=== PATIENT | female | born 1995 | race Caucasian/White ===

== ENCOUNTER 2022-01-31 18:37 | Inpatient (IN) | payer OTHER ==
[~2022-01-31] VITALS: Ht 157.5 cm; Wt 66.8 kg
[2022-01-31] MEDS ORDERED: KETOROLAC 30MG/ML VIAL IV STA (20:29)
[2022-01-31] MEDS ORDERED: SODIUM CHLORIDE 0.9% 1,000 ML IV ONE (20:30)
[2022-01-31] MEDS ORDERED: LEVETIRACETAM 500MG PREMIX 100 ML IV ONE (20:30)
[2022-01-31 21:07] LABS: CHLORIDE 97 mEq/L (98-107)
[2022-01-31 21:13] LABS: HEMATOCRIT. 37.9 % (36.0-48.0); HEMOGLOBIN. 12.8 g/dL (12.0-16.0); MEAN CORPUSCULAR HEMOGLOBIN 28.8 pg (28.0-32.0); MEAN CORPUSCULAR VOLUME 85.2 fL (81.0-99.0); MEAN PLATELET VOLUME 7.9 fl (7.4-10.4); PLATELET 352 x1000/uL (130-400); RED BLOOD CELL COUNT 4.44 mill/uL (4.2-5.4); RED CELL DISTRIBUTION WIDTH 13.3 % (11.6-14.6)
[2022-01-31 21:18] LABS: HCG SCREEN NEGATIVE
[2022-01-31 21:48] LABS: PLATELET ESTIMATE NORMAL
[2022-01-31] MEDS ORDERED: DEXAMETHASONE 10 MG/ML VIAL IV ONE (22:15)
[2022-01-31] MEDS ORDERED: MANNITOL 12.5G (25%) VIAL 50ML IV ONE (22:15)
[2022-02-01] MEDS ORDERED: GADOTERATE MEGLUMINE 5 MMOL/10 ML VIAL IV ONE (01:41)
[2022-02-01] MEDS ORDERED: ONDANSETRON HCL 4MG/2ML INJ IV PRN (05:30)
[2022-02-01] MEDS ORDERED: GUAIFENESIN 200MG/10ML SUGAR FREE UDC PO PRN (05:30)
[2022-02-01] MEDS ORDERED: ACETAMINOPHEN 325MG TABLET PO PRN (05:30)
[2022-02-01] MEDS ORDERED: DOCUSATE SODIUM 100MG CAPSULE PO PRN (05:30)
[2022-02-01] MEDS ORDERED: TRAMADOL 50MG TABLET PO PRN (05:30)
[2022-02-01] MEDS ORDERED: MAGNESIUM/ALUMINUM HYDROXIDE/SIMETHICONE 30ML UDC PO PRN (05:30)
[2022-02-01] MEDS ORDERED: NALOXONE HCL 0.4MG/ML VIAL IV PRN (09:00)
[2022-02-01] MEDS ORDERED: KETOROLAC 15MG/ML VIAL IV PRN (11:45)
[2022-02-01 11:47] VITALS: BP 100/58
[2022-02-01] MEDS ORDERED: DEXAMETHASONE 4MG/ML 1ML VIAL IV SCH (12:00)
[2022-02-01 12:01] VITALS: BP 100/58
[2022-02-01 12:59] VITALS: BP 105/61
[2022-02-01 16:00] VITALS: BP 104/60
[2022-02-01] MEDS ORDERED: LEVETIRACETAM 500MG/5ML CUP PO SCH (21:00)
== END 2022-02-01 16:10 | disposition home or self-care (01) | DRG 55 ==
LOC: ER 18:47 → 7EST 02-01 02:01 → EDBEDREQSVC 02-01 08:15 → ENRESERV 02-01 08:26
PROVIDERS: ADMIT Hospitalist; ATTEND Hospitalist
DX: D32.0 Benign neoplasm of cerebral meninges (principal); G43.909 Migraine, unspecified, not intractable, without status migrainosus; G90.8 Other disorders of autonomic nervous system; R56.9 Unspecified convulsions; Z80.3 Family history of malignant neoplasm of breast; Z91.013 Allergy to seafood
CPT/HCPCS: 36415; 70553; 71045; 80053; 83880; 84484; 84703; 85025; 93005; 99291; A9577; J1100; J1885; J1953; J2150; J7030